=== PATIENT | male | born 1940 | race Caucasian/White ===

== ENCOUNTER → 2019-05-02 | Outpatient (CLI) | payer MEDICARE ==
[~2019-05-02] MED LIST: HOLD METFORMIN - RECEIVED CONTRAST 20 ML VIAL IV SCH; IOHEXOL 350 MG/ML 100 ML (OMNIPAQUE 350) VIAL IV ONE; NS 100 ML (IVPB) BAG IV ONE
--- NOTE | 2019-05-02 16:59 | Diagnostic Imaging Report ---
CLINICAL INDICATION: Patient with lump on left side with BB placed in the area of concern. Patient has neck pain x1 week. Patient has no history of cancer. EXAM: CT scan of the neck soft tissue performed with 75 cc of Omnipaque 350 IV contrast. Sagittal and coronal reformatted images are created. COMPARISON: None. FINDINGS: There is no neck soft tissue mass, fluid collection, or fat stranding seen involving the neck. There is no soft tissue abnormality seen beneath the left neck skin marker. The left sternocleidomastoid muscle is seen directly beneath the left neck skin BB marker with no significant abnormality seen. The nasopharynx, oropharynx, hypopharynx, and laryngeal soft tissue structures are unremarkable. 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 Right thyroid gland is unremarkable. Bilateral salivary glands show no significant abnormality. There is no significant neck lymphadenopathy. Visualized portions of the oral cavity, tongue, sublingual and submandibular region is unremarkable. There is dependent atelectasis involving the posterior aspects of both lungs. There are degenerative spurs involving the cervical spine. There is consolidation of the right maxillary sinus with volume loss of the right maxillary sinus and medial concave deformity of all the right maxillary sinus gongora concerning for silent sinus syndrome. IMPRESSION: 1: There is no neck mass, lymphadenopathy, soft tissue inflammation, or fluid collection involving the neck soft tissue. There is no significant abnormality seen beneath the left neck BB marker. 2: There is consolidation of the right maxillary sinus with volume loss of the right maxillary sinus and medial concave deformity of all the right maxillary sinus gongora concerning for silent sinus syndrome. 3: Surgically absent left thyroid gland. Dictated by: Dictated on workstation # [id number]
== END ==
LOC: RAD 15:56
PROVIDERS: ATTEND Pediatrics
DX: J32.0 Chronic maxillary sinusitis (principal); R22.1 Localized swelling, mass and lump, neck; Z90.89 Acquired absence of other organs
CPT/HCPCS: 70491

== ENCOUNTER 2022-04-24 10:36 | Emergency (ER) | payer MEDICARE ==
[~2022-04-24] VITALS: Ht 177.8 cm; Wt 98.0 kg
[2022-04-24] MEDS ORDERED: PROPOFOL DRIP (ICU) 100 ML IV ONE (10:40)
[2022-04-24] MEDS ORDERED: PROPOFOL DRIP (ICU) 100 ML IV STA (10:42)
[2022-04-24] MEDS ORDERED: LIDOCAINE UROJET 2% GEL 10 ML PKG TOP ONE (11:00)
--- NOTE | 2022-04-24 11:09 | ED Neurological Problem ---
General Chief Complaint: Unresponsive Nursing Triage Note: PT TO ROOM FS01 VIA [facility] WITH C/O UNRESPONSIVE. EMS REPORTS PT FELL 4 MINUTES PRIOR TO EMS ARRIVAL. EMS STATES THAT MEDFLIGHT IS 30MINS OUT AND THAT THEY COULD NOT WAIT FOR FLIGHT ARRIVAL. PT INTUBATED UPON ARRIVAL. ET TUBE 7.5 AND 23 AT THE TEETH. History of Present Illness Date Seen by Provider: Apr 24, 2022 Time Seen by Provider: 09:45 Initial Comments 81-year-old male was brought in by EMS after being intubated in the field. EMS was awaiting med flight for patient, but midflight had a 30-minute ETA so patient was brought into the ER. Patient's daughter is the patient's power of state's attorney and she informed us that patient is DNR and DNI. Paperwork was faxed over from [employer] showing DNR and DNI with daughter is power of state's attorney. Patient history includes, visit to [facility] ER 10 days ago for dysarthria and weakness where he was diagnosed with a "mild brain stroke ", and was discharged home from the ER. Patient's symptoms never resolved, and he was a started on a blood thinner due to his fall risk. Today patient symptom became worse and he was found on the floor unresponsive. EMS was called immediately. No known recent history of fever or respiratory symptoms, diarrhea, abdominal pain, neck pain or stiffness. No recent falls or injuries. Allergies and Home Medications Allergies Coded Allergies: No Known Drug Allergies (Unverified , 05/02/19) Patient Home Medication List Home Medication List Reviewed: Yes Review of Systems Review of Systems Constitutional: other (unresposive and syncope with fall) Eyes: No Symptoms Reported Ears, Nose, Mouth, Throat: no symptoms reported Respiratory: no symptoms reported Cardiovascular: no symptoms reported Gastrointestinal: no symptoms reported Genitourinary: no symptoms reported Musculoskeletal: no symptoms reported Skin: no symptoms reported Psychiatric/Neurological: Other (unresponsive) Endocrine: No Symptoms Reported Hematologic/Lymphatic: No Symptoms Reported Physical Exam Vital Signs Vital Signs - First Documented 04/24/22 10:36 Temp 35.1 Pulse 125 Resp 18 B/P (MAP) 209/115 (146) O2 Delivery Mechanical Ventilator Capillary Refill : Less Than 3 Seconds Height, Weight, BMI Height: '" Weight: lbs. oz. kg; 31.00 BMI Method: General Appearance: other (nsive and intubated) HEENT: other (sluggish pupil reaction) Neck: supple Respiratory: chest non-tender, respiratory distress, rales, rhonchi Cardiovascular: normal peripheral pulses, bradycardia, irregularly irregular Gastrointestinal: normal bowel sounds, soft Back: normal inspection Extremities: normal inspection Neurologic/Psychiatric: other (intubated) Skin: pallor Progress/Results/Core Measures Results/Orders Lab Results Laboratory Tests Test 04/24/22 11:09 Range/Units White Blood Count 13.7 H 4.3-11.0 10^3/uL Red Blood Count 4.65 4.30-5.52 10^6/uL Hemoglobin 14.2 13.3-17.7 g/dL Hematocrit 42 40-54 % Mean Corpuscular Volume 91 80-99 fL Mean Corpuscular Hemoglobin 31 25-34 pg Mean Corpuscular Hemoglobin Concent 34 32-36 g/dL Red Cell Distribution Width 13.2 10.0-14.5 % Platelet Count 220 130-400 10^3/uL Mean Platelet Volume 11.2 9.0-12.2 fL Immature Granulocyte % (Auto) 1 % Neutrophils (%) (Auto) 84 H 42-75 % Lymphocytes (%) (Auto) 10 L 12-44 % Monocytes (%) (Auto) 4 0-12 % Eosinophils (%) (Auto) 1 0-10 % Basophils (%) (Auto) 0 0-10 % Neutrophils # (Auto) 11.5 H 1.8-7.8 10^3/uL Lymphocytes # (Auto) 1.4 1.0-4.0 10^3/uL Monocytes # (Auto) 0.6 0.0-1.0 10^3/uL Eosinophils # (Auto) 0.1 0.0-0.3 10^3/uL Basophils # (Auto) 0.1 0.0-0.1 10^3/uL Immature Granulocyte # (Auto) 0.1 0.0-0.1 10^3/uL Prothrombin Time 14.5 12.2-14.7 SEC INR Comment 1.1 0.8-1.4 Activated Partial Thromboplast Time 24 24-35 SEC Sodium Level 133 L 135-145 MMOL/L Potassium Level 6.3 H 3.6-5.0 MMOL/L Chloride Level 100 98-107 MMOL/L Carbon Dioxide Level 17 L 21-32 MMOL/L Anion Gap 16 H 5-14 MMOL/L Blood Urea Nitrogen 14 7-18 MG/DL Creatinine 1.13 0.60-1.30 MG/DL Estimat Glomerular Filtration Rate 66 BUN/Creatinine Ratio 12 Glucose Level 343 H 70-105 MG/DL Calcium Level 9.5 8.5-10.1 MG/DL Corrected Calcium 9.5 8.5-10.1 MG/DL Magnesium Level 2.3 1.6-2.4 MG/DL Total Bilirubin 0.4 0.1-1.0 MG/DL Aspartate Amino Transf (AST/SGOT) 75 H 5-34 U/L Alanine Aminotransferase (ALT/SGPT) 70 H 0-55 U/L Alkaline Phosphatase 88 40-136 U/L Troponin I < 0.30 <0.30 NG/ML Pro-B-Type Natriuretic Peptide 678.5 H <75.0 PG/ML Total Protein 7.2 6.4-8.2 GM/DL Albumin 4.0 3.2-4.5 GM/DL Serum Alcohol < 10 <10 MG/DL My Orders Orders - JO MANCILLA MD Ct Head Wo (04/24/22 10:40) Cbc With Automated Diff (04/24/22 10:41) Comprehensive Metabolic Panel (04/24/22 10:41) Troponin I Yolie (04/24/22 10:41) Magnesium (04/24/22 10:41) Propofol Drip (Icu) (Diprivan Drip (Icu) (04/24/22 10:42) Propofol Drip (Icu) (Diprivan Drip (Icu) (04/24/22 10:40) Protime With Inr (04/24/22 10:44) Partial Thromboplastin Time (04/24/22 10:44) Catheter(Urinary) Insert & Ass 03,15 (04/24/22 10:48) Lidocaine 2% (Urojet) (Xylocaine Urojet) (04/24/22 11:00) Probnp Fs (04/24/22 10:52) Alcohol (04/24/22 10:53) Morphine Injection (Morphine Injection (04/24/22 11:40) Lorazepam Injection (Ativan Injection) (04/24/22 11:45) Morphine Injection (Morphine Injection (04/24/22 11:42) Lorazepam Injection (Ativan Injection) (04/24/22 11:44) Scopolamine Patch (Transderm-Scop Patch) (04/24/22 11:53) Morphine Injection (Morphine Injection (04/24/22 11:49) Morphine Injection (Morphine Injection (04/24/22 13:32) Lorazepam Injection (Ativan Injection) (04/24/22 13:45) Medications Given in ED Current Medications Medications Dose Ordered Sig/Db Route Start Time Stop Time Status Last Admin Dose Admin Lorazepam 2 mg ONCE ONCE IVP 04/24/22 11:45 04/24/22 11:46 DC 04/24/22 12:04 2 MG Lorazepam 2 mg ONCE ONCE IVP 04/24/22 13:45 04/24/22 13:46 DC 04/24/22 13:49 2 MG Scopolamine 1.5 mg STK-MED ONCE .ROUTE 04/24/22 11:53 04/24/22 11:56 DC 04/24/22 12:00 1.5 MG Vital Signs/I&O 04/24/22 04/24/22 04/24/22 10:36 10:36 10:41 Temp 35.1 Pulse 125 125 Resp 18 B/P (MAP) 209/115 (146) 209/115 O2 Delivery Mechanical Ventilator Mechanical Ventilator Blood Pressure Mean: 146 Progress Progress Note : Progress Note 1. HEMORRHAGIC STROKE/ SUBARACHNOID HEMORRHAGE: UNRESPONSIVE & INTUBATED: - CT HEAD : see report - Pt's daughter is his power of state's attorney and informed us pt is DNR/ DNI. [facility] faxed DNR/ DNI paperwork to ER, placed in records. - Troponin normal, EKG shows A-Fib - WBC elevated mildly - Pro-bnp elevated - CXR - Pt was given Scopalamine patch to decrease secretions, and Morphine and Ativan prn, and then extubated. - Discussed with Palliative consult, Dr Garibay - Pt's family do not want home hospice but want pt to pass away in the hospital. Discussed with pt's PCP, Dr Landa, and will transfer to [facility] where he will be admitted to hospice care with his PCP. - Pt's family do not want him to get oxygen. Critical Care Note Critical Care Start Time: 10:40 Stop Time: 15:00 Departure Impression Primary Impression: Hemorrhagic stroke Additional Impressions: Subarachnoid hemorrhage Intraparenchymal hemorrhage of brain Unresponsive Disposition: 02 XFER SHT-TRM HOSP Condition: Critical Transfer Transfer Reason: Patient preference Time Spoke to Accepting Phy: 13:00 Transfer Progress Notes Accepted by Dr Landa Transfer Facility: [facility] Departure-Patient Inst. Referrals: VILLA LANDA MD (PCP) Primary Care Physician JO MANCILLA MD Apr 24, 2022 11:09
[2022-04-24 11:17] LABS: BASOPHILS # (AUTO) 0.1 10^3/uL (0.0-0.1); BASOPHILS % (AUTO) 0 % (0-10); EOSINOPHILS # (AUTO) 0.1 10^3/uL (0.0-0.3); EOSINOPHILS % (AUTO) 1 % (0-10); HEMATOCRIT 42 % (40-54); HEMOGLOBIN 14.2 g/dL (13.3-17.7); LYMPHOCYTES # (AUTO) 1.4 10^3/uL (1.0-4.0); LYMPHOCYTES % (AUTO) 10 % (12-44); MEAN CORPUSCULAR HEMOGLOBIN 31 pg (25-34); MEAN CORPUSCULAR HGB CONC 34 g/dL (32-36); MEAN CORPUSCULAR VOLUME 91 fL (80-99); MEAN PLATELET VOLUME 11.2 fL (9.0-12.2); MONOCYTES # (AUTO) 0.6 10^3/uL (0.0-1.0); MONOCYTES % (AUTO) 4 % (0-12); NEUTROPHILS # (AUTO) 11.5 10^3/uL (1.8-7.8); NEUTROPHILS % (AUTO) 84 % (42-75); PLATELET COUNT 220 10^3/uL (130-400); WHITE BLOOD COUNT 13.7 10^3/uL (4.3-11.0)
--- NOTE | 2022-04-24 11:19 | Diagnostic Imaging Report ---
EXAMINATION: CT head without contrast. TECHNIQUE: Multiple contiguous axial images were obtained through the brain without the use of intravenous contrast. All CT scans use one or more of the following dose optimizing techniques: automated exposure control, MA and/or KvP adjustment based on patient size and exam type or iterative reconstruction. HISTORY: Unresponsive. Fall. Head pain. COMPARISON: None available. FINDINGS: A small focus of intraparenchymal hemorrhage is seen involving the left frontal lobe. A small amount of subarachnoid hemorrhage is seen involving the anterior frontal region on the left. No midline shift. No evidence of large acute territorial ischemia. A chronic infarct is seen in the right occipital lobe. Chronic microvascular disease is seen throughout the periventricular and subcortical white matter. The ventricles and cortical sulci are prominent. The basilar cisterns are clear. The orbits are normal. Retained secretions are visualized throughout the right maxillary sinus. Mastoid air cells are clear. No soft tissue abnormality is seen. No osseus lesions or fractures are seen. IMPRESSION: 1. Small area of intraparenchymal hemorrhage involving the left frontal lobe with an additional small amount of subarachnoid hemorrhage in the anterior left frontal region. No midline shift. 2. No large acute territorial ischemia. 3. Old infarct involving the right occipital lobe. 4. Generalized parenchymal volume loss with scattered chronic microvascular disease. 5. Retained secretions throughout the right maxillary sinus. 6. The report was called and faxed to [facility] in the ER by [email or web address]@11:17 AM. Dictated by: Dictated on workstation # [id number]
[2022-04-24] MEDS ORDERED: morphine INJ 10 MG/ML 1ML (SYR OR VIAL) IVP STA ×3 (11:40→13:32)
[2022-04-24] MEDS ORDERED: morphine INJ 10 MG/ML 1ML (SYR OR VIAL) ONE (11:42)
[2022-04-24] MEDS ORDERED: LORazepam INJ 2 MG/ML (ATIVAN) VIAL ONE (11:44)
[2022-04-24] MEDS ORDERED: LORazepam INJ 2 MG/ML (ATIVAN) VIAL IVP ONE ×2 (11:45→13:45)
[2022-04-24 11:47] LABS: INR 1.1 (0.8-1.4); PROTHROMBIN TIME PATIENT 14.5 SEC (12.2-14.7)
[2022-04-24] MEDS ORDERED: SCOPOLAMINE 1.5 MG (TRANSDERM-SCOP) PATCH ONE (11:53)
[2022-04-24 11:54] LABS: BILIRUBIN,TOTAL 0.4 MG/DL (0.1-1.0); BUN/CREATININE RATIO 12; CALCIUM 9.5 MG/DL (8.5-10.1); CARBON DIOXIDE 17 MMOL/L (21-32); CHLORIDE 100 MMOL/L (98-107); CREATININE SERUM 1.13 MG/DL (0.60-1.30); GFR ESTIMATED 66; GLUCOSE 343 MG/DL (70-105); MAGNESIUM 2.3 MG/DL (1.6-2.4); SODIUM 133 MMOL/L (135-145)
[2022-04-24 11:55] LABS: ALANINE AMINOTRANSFERASE 70 U/L (0-55); ALKALINE PHOSPHATASE 88 U/L (40-136); TOTAL PROTEIN 7.2 GM/DL (6.4-8.2)
[2022-04-24 11:56] LABS: POTASSIUM 6.3 MMOL/L (3.6-5.0)
[2022-04-24] MEDS ORDERED: ATROPINE 1% OPHTHALMIC SOLN 2 ML OP STA (12:13)
[2022-04-24 15:05] VITALS: BP 86/57
== END 2022-04-24 15:05 | disposition short-term general hospital (02) ==
LOC: EDUNIT# 10:36 → ER FS 10:37
DX: I60.9 Nontraumatic subarachnoid hemorrhage, unspecified (principal); R40.4 Transient alteration of awareness; I61.9 Nontraumatic intracerebral hemorrhage, unspecified
CPT/HCPCS: 36415; 70450; 80053; 83735; 83880; 84484; 85025; 85610; 85730; 93005; 99283; G0480; 80320